=== PATIENT | male | born 1935 | race Two or more races ===

== ENCOUNTER → 2024-07-03 | Outpatient (REF) | payer OTHER | LOC: M SFHCDERM 17:41 | PROVIDERS: ATTEND Dermatology | DX: C44.329 Squamous cell carcinoma of skin of other parts of face (principal) ==

== ENCOUNTER → 2024-08-26 | Outpatient (CLI) | payer OTHER | LOC: M RAD 13:22 | PROVIDERS: ATTEND Dermatology | DX: C44.92 Squamous cell carcinoma of skin, unspecified (principal) ==

== ENCOUNTER → 2024-10-08 | Outpatient (CLI) | payer MEDICARE, OTHER ==
[~2024-10-08] MED LIST: BASA100I IM; CLOP75TA2 PO; FURO40TA2 PO; HYDR-643 PO; JANU100T PO; LEVO100T5 PO; METO1TAB32 PO; OMEP-173 PO; ROSU20TA86 PO
== END ==
LOC: M ONCR 13:52
PROVIDERS: ATTEND General Practice
DX: Z08 Encounter for follow-up examination after completed treatment for malignant neoplasm (principal); Z85.828 Personal history of other malignant neoplasm of skin; Z79.01 Long term (current) use of anticoagulants; Z99.3 Dependence on wheelchair; Z98.890 Other specified postprocedural states